=== PATIENT | female | born 1985 | race African-American/Black ===

== ENCOUNTER 2019-04-02 07:15 | Emergency (ER) | payer SELFPAY ==
[~2019-04-02] VITALS: Ht 170.2 cm; Wt 90.7 kg
[2019-04-02 07:20] VITALS: BP 114/84
== END 2019-04-02 09:54 | disposition home or self-care (01) ==
LOC: EDBD 07:15 → ER 07:15
DX: J45.901 Unspecified asthma with (acute) exacerbation (principal); J06.9 Acute upper respiratory infection, unspecified
CPT/HCPCS: 71046